=== PATIENT | female | born 1960 | race Caucasian/White ===

== ENCOUNTER 2016-05-29 03:40 | Inpatient (IN) | payer OTHER ==
[~2016-05-29] VITALS: Ht 167.6 cm; Wt 90.7 kg
[~2016-05-29 03:40] MED LIST: ASPIRIN EC81 M1 PO; DAILY MULTIPLE1 EACH PO; LISINOPRIL-HCT1 EAC2 PO; MELATONIN10 M5 PO; MOTRIN PO; SIMVASTATIN20 M2 PO
--- NOTE | 2016-05-29 10:05 | Admission Core Measures ---
Admission Meds I reviewed the following Meds: Current Medications Sig/Lilliana Start time Last Medication Dose Stop Time Status Admin Acetaminophen 975 MG ONCE 05/29 0000 NR (Tylenol) 05/29 2358 Atorvastatin Calcium 10 MG 1700 05/29 1700 UNVr (Lipitor) Cefazolin Sodium 2,000 MG ONCE 05/29 0000 NR (Kefzol-Ancef Inj) 05/29 2358 Lisinopril 10 MG DAILY 05/29 1000 UNVr (Prinivil) Melatonin 10 MG AT BEDTIME PRN 05/29 1000 UNVr (Melatonin) Oxycodone HCl 10 MG ONCE 05/29 0000 NR (Roxicodone) 05/29 2358 Acute Coronary Syndrome Inclusion Criteria ACS Diagnosis No Inpatient Core Measures LDL Reminder: If No, please order W/I first 24hr of stay Congestive Heart Failure Inclusion Criteria CHF Diagnosis No Cerebrovascular accident Inclusion Criteria CVA/TIA Diagnosis No Inpatient Core Measures Bedside Swallow Eval Reminder: If BSE failed, place ST order Antithrombotic Reminder: Order Antithrombotic Medication by end of day 2 Antithrombotic Reminder: Document Reason Antithrombotic Not ordered by end of day 2 AFIB/Flutter Reminder: If Present, add to problem list AFIB/Flutter Reminder: Order Anticoag Medication for pts with AFIB/Flutter Atherosclerosis Reminder: If Present, add to problem list LDL Reminder: If No, please order W/I first 24hr of stay PT Order Reminder: If No, please order Venous thromboembolism Inpatient Core Measures VTE Risk Factors: Age > 40, Surgery VTE Prophylaxis [facility] d/t No contraindications No VTE Pharm Prophylaxis d/t No contraindications Inclusion Criteria - Per Current guidelines, there needs to be overlap - treatment for the first 5 days of Warfarin therapy. - Parenteral Anticoagulation (IV or SC) needs to be - given along with Warfarin therapy. VTE Diagnosis No VTE Type NONE VTE Confirmed by (Test) NONE Problem List As ranked by this Provider includes Assessment & Plan 1. Status post total hip replacement, left HOME MEDS Home Med List Lisinopril/Hydrochlorothiazide (Lisinopril-Hctz 10-12.5 MG Tab) 10 MG-12.5 MG TABLET 1 TAB PO DAILY BP (Reported) Melatonin 10 MG CAPSULE 1 TAB PO QPM SLEEP (Reported) Multivitamin (Daily Multiple Vitamin) 1 EACH TABLET 1 TAB PO DAILY SUPPLEMENT (Reported) Simvastatin (Simvastatin*) 20 MG TABLET 1 TAB PO QPM CHOLESTEROL (Reported) Discontinued Medications Aspirin (Ecotrin*) 81 MG TABLET. 1 TAB PO DAILY HEARTHEALTH (Reported) Discontinued reason: Changed Dose [MOTRIN] 800 MG PO EVERY 6HRS- NEEDED PAIN (Reported) Discontinued reason: Changed to different med
--- NOTE | 2016-05-29 10:08 | Patient Discharge Instructions ---
Discharge Instructions General Discharge Information You were seen/treated for: hip pain You had these procedures: total hip replacement Watch for these problems: temp>101, increased redness or drainage of wounds No bath, but you may shower: Yes Other wound care: Keep incision clean and dry, may shower, no bathing or soaking Diet Recommended Diet: Heart Healthy Activity Activity Self Limited: Yes Activity Limited to: Weight bear as tolerated Acute Coronary Syndrome Inclusion Criteria At DC or during hospital stay patient has or had the following: ACS DIAGNOSIS No Discharge Core Measures Meds if any: Prescribed or Continued at Discharge Meds if any: NOT Prescribed or Continued at Discharge Congestive Heart Failure Inclusion Criteria At DC or during hospital stay patient has or had the following: CHF DIAGNOSIS No Discharge Core Measures Meds if any: Prescribed or Continued at Discharge Meds if any: NOT Prescribed or Continued at Discharge Cerebrovascular accident Inclusion Criteria At DC or during hospital stay patient has or had the following: CVA/TIA Diagnosis No Discharge Core Measures Meds if any: Prescribed or Continued at Discharge Meds if any: NOT Prescribed or Continued at Discharge Venous thromboembolism Inclusion Criteria VTE Diagnosis No VTE Type NONE VTE Confirmed by (Test) NONE Discharge Core Measures - Per Current guidelines, there needs to be overlap - treatment for the first 5 days of Warfarin therapy. - If discharged on Warfarin prior to 5 days of - overlap therapy, the patient will need to be - assessed for post discharge needs including - *Post discharge parental anticoagulation - *Warfarin and/or parental anticoagulation education - *Follow up date to check INR post discharge At least 5 days overlap therapy as Inpatient No Meds if any: Prescribed or Continued at Discharge Note: Overlap Therapy is Warfarin and Anticoagulant Meds if any: NOT Prescribed or Continued at Discharge
[2016-05-29] MEDS ORDERED: MIRALAX17 G1 PO (10:09)
[2016-05-29] MEDS ORDERED: ASPIRIN EC325 M2 PO (10:09)
[2016-05-29] MEDS ORDERED: MS CONTIN15 M2 PO (10:09)
[2016-05-29] MEDS ORDERED: DILAUDID2 M1 PO (10:09)
[2016-05-29] MEDS ORDERED: COLACE100 M1 PO (10:09)
--- NOTE | 2016-05-29 10:12 | Surg Short-stay <48hrs Dis Sum ---
Visit Information Visit Dates Admission Date: 05/29/16 Discharge Date: 05/29/16 Surgical Short Stay DC Summary Admission Diagnosis: OA Final Diagnosis: OA, s/p L ISABEL Procedure(s): L ISABEL, see operative report Summary/Significant Findings: Pt underwent L ISABEL by Dr Guerrier and was brought to the PACU in stable condition. She was able to tolerate a regular diet, void spontaneously, her pain was well controlled and she was working with PT - [facility]AT. She was cleared for discharge to home with services and home PT. Follow up instruction given. Condition at Discharge: good Discharge Disposition: home health services Discharge instructions provided to patient/family: Yes Post discharge follow-up plan: Keep scheduled appt, call sooner if needed
--- NOTE | 2016-05-29 11:45 | RADIOLOGY REPORT ---
EXAMINATION: XR HIP, LEFT CLINICAL INFORMATION: Left total hip replacement COMPARISON: None TECHNIQUE: Two views of the left hip. FINDINGS: The components of the total hip arthroplasty are in their expected positions and alignment at the femoroacetabular joint is anatomic. No acute periprosthetic fracture or subluxation. There is mild postoperative soft tissue swelling and soft tissue gas of the left hip region. The visualized left pelvic bones are intact. IMPRESSION: Satisfactory positioning and alignment of components of the left total hip arthroplasty.
[2016-05-29 12:03] VITALS: BP 104/66
--- NOTE | 2016-05-29 12:10 | PN- Orthopedic ---
Subjective Subjective: Post op check Awake, alert post op No complaints Pain is well controlled, no nausea, has not worked with PT yet Objective Vital Signs and I&Os Vital Signs Date Time Temp Pulse Resp B/P Pulse O2 O2 Flow FiO2 Ox Delivery Rate 05/29 1203 97.8 72 18 104/66 98 Room Air Physical Exam: vss, afebrile Has not voided yet General: alert and oriented times three chest: clear anteriorly bilaterally, RRR Abd: soft, good bs Ext: warm, no edema, positive sensate, good strength Wound: dressed, dry, ice pack in place Assessment/Plan Assessment/Plan 56 yo female s/p L ISABEL pain mgmt PT - wbat fu void plan to dc later today or tmrw once cleared Core Measures/Miscellaneous Venous Thromboembolism VTE Risk Factors: Age > 40, Surgery VTE Contraindications: No Contraindications VTE Prophylaxis Ordered Inpt: [facility] VTE Diagnosis: No VTE Type: NONE VTE Confirmed by (Test): NONE Beta Mickie Is Beta Mickie a Home Med? No Antibiotics Is Patient on Antibiotics? Yes (post op 24 hrs)
[2016-05-29 13:34] VITALS: BP 114/80
--- NOTE | 2016-05-29 13:41 | Operative Report ---
Operative/Inv Procedure Report Surgery Date: 05/29/16 Name of Procedure: Left total hip replacement Pre-Operative Diagnosis: Primary left hip DJD Post-Operative Diagnosis: Same Estimated Blood Loss: 250 Surgeon/Cherry Picker Operator: NICOLÁS VALENCIA,CHITRA Garcia Anesthesia: block Operative/Procedure Note Note: Description of Procedure: The patient was taken to the operating room and positively identified. After induction of spinal anesthesia and administration of appropriate pre-operative antibiotics, the patient was positioned supine on the operating room table and all bony prominences were well padded. After performing a surgical timeout, the left lower extremity was prepped and draped in the usual sterile fashion. A direct anterior approach was made to the left hip. The incision was carried sharply through superficial soft tissues to the level of the fascia. Meticulous hemostasis was maintained with Bovie electocautery. The fascia over the tensor fascia hilda muscle was opened sharply and the interval between the TFL and the sartorius was entered bluntly taking care to stay lateral to the lateral femoral cutaneous nerve. Retractors were placed around the femoral neck and the pericapsular fat was identified. The ascending branches of the lateral femoral circumflex vessels were identified and carefully coagulated. The pericapsular fat and anterior capsule were then resected. A napkin ring osteotomy was performed and the femoral head was removed without difficulty. Attention was then turned to the acetabulum. After appropriate placement of retractors, the acetabulum was exposed. Soft tissue was cleaned from the acetabular margin and notch. Overhanging osteophytes were removed and the teardrop was exposed. The acetabulum was then sequentially reamed to accept a 50 mm [place]on Tritanium hemispherical solid back shell. This was impacted into place in the appropriate position and fitted with a 32 mm Trident X3 zero degree polyethylene insert. Attention was then turned to the femur. After performing the appropriate ligament releases, the proximal femur was exposed. It was then sequentially broached to accept a size 4 [place] Anato stem. This was trialed for leg length and stability. The trial component was removed and the final component was impacted into place. The trunnion was carefully cleaned and fit with a 32 mm, + 0 Biolox delta ceramic femoral head. The hip was reduced and put through a full range of motion and found to be stable. The articular space was then irrigated with sterile saline. The periarticular soft tissues were infilitrated with Marcaine. The fascial layer was closed with interrupted #1 vicryl suture and the skin was re-approximated with interrupted 2 -0 vicryl. The skin was closed with a running 3-0 V-Lock suture. Steri-strips and a sterile dressing were applied. The patient was awakened and taken to the recovery room in satisfactory condition.
--- NOTE | 2016-05-29 14:49 | NUR ---
ARRIVED TO FLOOR AT 1200 FROM PACU. A & O X 3. VSS. DENIES PAIN. C/O MILD NUMBNESS TO BLE. AWAITING PT EVAL. ORIENTED TO ROOM. DSG TO LEFT HIP C/D/I. IVF INFUSING. WILL MONITOR.
== END 2016-05-29 16:00 | disposition home health service (06) | DRG 470 ==
LOC: ENRESERVDT → ENRESERVTM → SDA 03:40 → 2NA 11:44
PROVIDERS: ADMIT Orthopaedic Surgery
PROC: 0SRB04A Replacement of Left Hip Joint with Ceramic on Polyethylene Synthetic Substitute, Uncemented, Open Approach (ICD-10-PCS; principal; 2016-05-29)
DX: M16.12 Unilateral primary osteoarthritis, left hip (principal); I10 Essential (primary) hypertension; E78.5 Hyperlipidemia, unspecified; Z87.891 Personal history of nicotine dependence
CPT/HCPCS: 2NASP; 73502-LT; 88304; 97110-GO; 97116-GO; 97162-GP; 97530-GO; J0690; J0735; J1885; J2405; J7042